=== PATIENT | male | born 2005 | race Caucasian/White ===

== ENCOUNTER 2023-10-10 12:29 | Outpatient (AMB) | payer OTHER, SELFPAY ==
--- NOTE | 2023-10-10 12:34 | AM.OFFWIN_ITS ---
Intake Vital Signs 3 10/10/23 12:35 Weight 169 lb BP 110/64 Blood Pressure Location Rt brachial Position Sitting Pulse 85 Pulse Source Pulse Oximeter Pulse Oximetry (%) 98 Oxygen Delivery Method Room Air Intake Visit Reasons: Cyst on lower back Intake Note: Patient here for cyst on tailbone that has been present for about 2 weeks. Patient Tobacco Use Status: Never used Tobacco Allergies No Known Allergies Allergy (Verified 10/10/23 12:36) Medication List - Last Reconciled 10/10/23 by Genny Marr MD No Known Home Meds Do you need a note to return to daycare/school/sports/work: Yes HPI Cyst on lower back 2 HPI0 Details Patient is 18 year old came in today to be evaluated for cyst between gluteus bryson Patient says that it started 3 weeks ago he has been applying warm compresses and sitting warm bath water Patient says that the pus has started to drain he is feeling better however there is still some redness So he came in for evaluation On examination he has erythema in that area now but there is no fluctuation I am treating him with Augmentin for 10 days He may continue sitting in a warm bath water Work note provided for today Review system reveals no fever no chills no difficulty defecating There is no abdominal pain no nausea no vomiting PFSH Social History Patient Tobacco Use Status: Never used Tobacco Review of Systems Const All systems reviewed & are unremarkable except as noted in HPI and below Physical Exam Vital Signs: Last Vital Signs Pulse 85 10/10/23 12:35 BP 110/64 10/10/23 12:35 Pulse Ox 98 10/10/23 12:35 Oxygen Delivery Method Room Air 10/10/23 12:35 Const General: no acute distress Orientation/consciousness: patient oriented x3 Eyes General: appearance normal, both eyes and all related structures Resp Effort & Inspection: normal respiratory effort and able to speak in complete sentences Back/Spine/Pelvis Back/spine/pelvis image: 2 1. Erythema but no fluctuation Neuro General: patient oriented x3 Psych Mental Status: mental status grossly normal Assessment & Plan Assessment & Plan (1) Infected pilonidal cyst: Code(s): L05.91 - Pilonidal cyst without abscess Plan Patient is 18 year old came in today to be evaluated for cyst between gluteus bryson Patient says that it started 3 weeks ago he has been applying warm compresses and sitting warm bath water Patient says that the pus has started to drain he is feeling better however there is still some redness So he came in for evaluation On examination he has erythema in that area now but there is no fluctuation I am treating him with Augmentin for 10 days He may continue sitting in a warm bath water Work note provided for today Review system reveals no fever no chills no difficulty defecating There is no abdominal pain no nausea no vomiting Medications: New 2 amoxicillin-pot clavulanate 875-125 mg 1 tab PO BID 10 days 20 tabs 0RF Coding Level of Care Code New Pt Level 3 (08418) Diagnoses Infected pilonidal cyst L05.91
[2023-10-10 12:35] VITALS: BP 110/64; PULSE 85; O2SAT 98
== END 2023-10-10 13:04 | disposition home or self-care (01) ==
PROVIDERS: Visit Provider Internal Medicine
DX: L05.91 Pilonidal cyst without abscess (principal)
CPT/HCPCS: 99203